=== PATIENT | male | born 1980 | race Caucasian/White ===

== ENCOUNTER 2020-09-11 23:49 | Emergency (ER) | payer OTHER ==
[~2020-09-11] VITALS: Ht 172.7 cm; Wt 77.1 kg
[~2020-09-11 23:49] MED LIST: ACET325; CEPH500 PO; CETI10 PO; DIPH50 PO; HYDACE5 PO; NAPR500 PO; PROM25 PO; RXHYDACE PO; SULTRIDS PO
[2020-09-12] MEDS ORDERED: OXYACE7.5T PO (01:13)
[2020-09-12] MEDS ORDERED: Crutch1 EACH XX (01:13)
== END 2020-09-12 01:32 | disposition home or self-care (01) ==
LOC: ER 23:49
DX: S89.91XA Unspecified injury of right lower leg, initial encounter (principal); F17.210 Nicotine dependence, cigarettes, uncomplicated; Z88.5 Allergy status to narcotic agent; X50.1XXA Overexertion from prolonged static or awkward postures, initial encounter; Y93.39 Activity, other involving climbing, rappelling and jumping off
CPT/HCPCS: 29505; 73562-RT; 96372; 99283-25; A9270; J3010

== ENCOUNTER → 2023-07-24 | Outpatient (CLI) | payer OTHER ==
[~2023-07-24] MED LIST changes: +Crutch1 EACH XX; +OXYACE7.5T PO
== END ==
LOC: LAB 11:24 → LAB SHORT 11:24
DX: L20.9 Atopic dermatitis, unspecified (principal)
CPT/HCPCS: 87210

== ENCOUNTER 2024-06-21 14:55 | Emergency (ER) | payer OTHER ==
[~2024-06-21] VITALS: Ht 172.7 cm; Wt 70.3 kg
[2024-06-21 15:09] VITALS: BP 129/78
[2024-06-21 15:40] LABS: BASOPHILS ABSOLUTE AUTO 0.08 K/mm3 (0.00-0.23); BASOPHILS PERCENT AUTO 1 % (0-2); EOSINOPHILS ABSOLUTE AUTO 0.29 K/mm3 (0.00-0.68); EOSINOPHILS PERCENT AUTO 3 % (0-6); Hematocrit 43.1 % (37.0-53.0); Hemoglobin 14.2 g/dL (13.5-17.5); IMMATURE GRAN ABSOLUTE AUTO 0.01 K/mm3 (0.00-0.10); IMMATURE GRAN PERCENT AUTO 0 % (0-1); LYMPHOCYTES ABSOLUTE AUTO 2.07 K/mm3 (0.84-5.20); LYMPHOCYTES PERCENT AUTO 23 % (21-46); MONOCYTES ABSOLUTE AUTO 0.42 K/mm3 (0.16-1.47); MONOCYTES PERCENT AUTO 5 % (4-13); Mean Corpuscular HGB Conc 32.9 g/dL (31.5-36.5); Mean Corpuscular Volume 91 fL (80-100); Mean Platelet Volume 9.5 fL (9.1-12.4); NEUTROPHILS ABSOLUTE AUTO 6.14 K/mm3 (1.96-9.15); NEUTROPHILS PERCENT AUTO 68 % (41-73); Platelet Count 241 K/mm3 (150-400); RDW Coefficient Variation 12.5 % (11.7-14.2); RDW Standard Deviation 41.8 fL (35.1-46.3); Red Blood Cell Count 4.73 M/mm3 (4.30-5.90); White Blood Cell Count 9.01 K/mm3 (4.00-11.30)
[2024-06-21 16:05] LABS: Alanine Aminotransfer (ALT/SGP 25 U/L (12-78); Albumin, Blood 3.9 g/dL (3.4-5.0); Alk Phos 97 U/L (50-136); Anion Gap 9 mmol/L (3-11); Aspartate Aminotrans (AST/SGOT 27 U/L (12-37); Bilirubin, Total 0.2 mg/dL (0.1-1.0); Blood Urea Nitrogen 14 mg/dL (8-24); Bun/Creatinine Ratio 16.2 (12.0-20.0); C-REACTIVE PROTEIN, EXT RANGE <0.290 mg/dL (0.000-0.300); CO2, Blood 26 mmol/L (21-32); Calcium, Blood 9.4 mg/dL (8.5-10.1); Chloride, Blood 109 mmol/L (98-108); Creatinine, Blood 0.86 mg/dL (0.60-1.20); Glomerular Filtration Rate 111 (60-); Glucose, Blood 88 mg/dL (70-99); Magnesium, Blood 1.9 mg/dL (1.6-2.4); Potassium, Blood 3.7 mmol/L (3.5-5.5); Sodium, Blood 140 mmol/L (136-145); Total Protein, Blood 7.9 g/dL (6.4-8.2)
[2024-06-21 16:24] LABS: Influenza A, PCR NEGATIVE (NEGATIVE); Influenza B, PCR NEGATIVE (NEGATIVE); Resp Syncytial Virus, PCR NEGATIVE (NEGATIVE); SARS-Cov-2 (COVID-19) PCR, MMC NEGATIVE (NEGATIVE)
[2024-06-21] MEDS ORDERED: TRIDERM28.4 GM TOP (19:00)
== END 2024-06-21 19:02 | disposition home or self-care (01) ==
LOC: ER 14:55
PROVIDERS: Physician Assistant
DX: L40.9 Psoriasis, unspecified (principal); F17.210 Nicotine dependence, cigarettes, uncomplicated; Z88.5 Allergy status to narcotic agent
CPT/HCPCS: 0241U; 80053; 83735; 85025; 86140; 99283